=== PATIENT | female | born 1955 | race Caucasian/White ===

== ENCOUNTER → 2017-02-14 | Outpatient (CLI) | payer SELFPAY ==
[~2017-02-14] MED LIST: COMPAZINE5 MG PO; PERCOCET 5-3251 EACH PO; SENNA-DOCUSATE1 EACH PO; THERA-VITE W/ B1 TAB PO; TYLENOL325 MG PO
== END | disposition disaster alternative care site (69) ==
LOC: GRAD 14:38
DX: C19 Malignant neoplasm of rectosigmoid junction (principal); C78.02 Secondary malignant neoplasm of left lung; C79.51 Secondary malignant neoplasm of bone; C79.01 Secondary malignant neoplasm of right kidney and renal pelvis; J90 Pleural effusion, not elsewhere classified
CPT/HCPCS: Q9967

== ENCOUNTER 2017-03-09 12:21 | Emergency (ER) | payer SELFPAY ==
--- NOTE | ~2017-03-09 | ER ---
PATIENT'S NAME: [facility] AGE: 61 Y [address] ROOM: [place] [address] LOCATION: ED ADMIT DATE: 03/09/2017 ER/Outpatient Report DISCHARGE DATE: 03/09/2017 FAMILY PHYSICIAN: , Unknown ATTENDING PHYSICIAN: Chi Watson Time of Arrival: 1220 hours. Time of Evaluation: 1220 hours. CHIEF COMPLAINT: Code blue. HISTORY OF PRESENT ILLNESS: The patient is a 61-year-old female who presents to the emergency department today with a chief complaint of code blue. The patient apparently was at home, had just gotten out of the shower when she collapsed with bystanders started CPR. 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 The patient has been undergoing with radiation. PAST MEDICAL HISTORY: Stage II rectal carcinoma with metastasis to the left lower lung as well as invasion of the soft tissue of the left 8th rib and heartburn. PAST SURGICAL HISTORY: Colonoscopy with biopsy; colon resection with colostomy in 2011; bronchoscopy with biopsy in 03/2016; left lower lobe lobectomy with mediastinal lymph node dissection in December of 2015; stent to the left main bronchus in October 2016; 3 subcutaneous chest wall masses removed, 10/03/2016. SOCIAL HISTORY: The patient is , lives with her in [place]. No children. Denies any alcohol, tobacco, or illicit drug use. ALLERGIES: NO KNOWN DRUG ALLERGIES. MEDICATIONS: 1. Tylenol. 2. Tropic. 3. Multivitamin. 4. Probiotics. 5. Senna. 6. Tums. PATIENT'S NAME: [facility] AGE: 61 Y [address] ROOM: [place] [address] LOCATION: ED ADMIT DATE: 03/09/2017 ER/Outpatient Report DISCHARGE DATE: 03/09/2017 FAMILY PHYSICIAN: , Unknown ATTENDING PHYSICIAN: Chi Watson REVIEW OF SYSTEMS: All systems are unable to be reviewed at this time secondary to the patient's condition. PHYSICAL EXAMINATION: VITAL SIGNS: The patient is currently intubated with no respiratory effort. The patient is in asystole. GENERAL: The patient is a 61-year-old female, appears older than stated age with a thin appearance, pale color. HEENT: Normocephalic, atraumatic. Pupils are 5 mm, nonreactive. Oropharynx with an ET tube in place. NECK: Supple. No step-offs or deformities. CARDIOVASCULAR: Asystole. RESPIRATORY: Bilateral breath sounds with bagging. Currently intubated. ABDOMEN: Soft, nontender, and nondistended. MUSCULOSKELETAL: No muscular movement. I/O in place, right anterior tibia. SKIN: Cool, pale. NEUROLOGICAL: GCS 3. LABORATORY DATA AND X-RAYS: Bedside ultrasound was performed by myself. There is a faint cardiac activity noted. IMPRESSION: 1. Cardiac arrest. 2. . 3. CPR for 6 minutes. 4. Initial visit. EMERGENCY DEPARTMENT COURSE: The patient was brought back to the examination room. Seen immediately upon arrival by myself. She was a code blue call from the field. She had received 5 epinephrine en route. She had been down for somewhere around 20-30 minutes. 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 The patient was seen and evaluated. The bedside ultrasound revealed minimal cardiac activity, not consistent with life. She had no respiratory effort. Her ET tube was filled with a bloody frothy substance. The patient's code is called at 1226 hours with time of . I did discuss the with the patient's , he is brought back. Please see the nursing checklist for further. I also did notify Dr. Avina, the patient's oncologist and notified her the as well. DISPOSITION: The patient is discharged to . PATIENT'S NAME: MAN MARTIN [facility] AGE: 61 Y [address] ROOM: [place], [place] [address] LOCATION: [facility] ADMIT DATE: 03/09/2017 ER/Outpatient Report DISCHARGE DATE: 03/09/2017 FAMILY PHYSICIAN: Physician, Unknown ATTENDING PHYSICIAN: Chi Watson DO LAZARO DIAZ/[email or web address] /[id number] d: 03/09/17 2105 t: 03/14/17 0736, OUTPATIENT REPORT
== END 2017-03-09 14:50 | disposition expired ==
LOC: GMED 12:21
DX: I46.9 Cardiac arrest, cause unspecified (principal); C20 Malignant neoplasm of rectum; C79.89 Secondary malignant neoplasm of other specified sites; Z90.49 Acquired absence of other specified parts of digestive tract; Z85.118 Personal history of other malignant neoplasm of bronchus and lung; Z98.890 Other specified postprocedural states; Z79.899 Other long term (current) drug therapy